=== PATIENT | male | born 1975 | race Caucasian/White ===

== ENCOUNTER 2023-12-06 10:25 | Emergency (ER) | payer SELFPAY ==
[2023-12-06] MEDS: Dexamethasone 10 MG/ML SDV IM ONE (11:01)
[2023-12-06] MEDS: Ketorolac 30 MG/ML SDV IM ONE (11:02)
[2023-12-06] MEDS: Take Home: Amoxicillin/Clavulanate K 875-125 MG Tab, 2 Tab Pack PO ONE (11:03)
== END 2023-12-06 11:25 | disposition home or self-care (01) ==
LOC: CC.ED 10:25
DX: K04.7 Periapical abscess without sinus (principal); F17.210 Nicotine dependence, cigarettes, uncomplicated; Z79.899 Other long term (current) drug therapy
CPT/HCPCS: 96372; 99283; A9270-GY; J1100; J1885